=== PATIENT | male | born 1980 | race Caucasian/White ===

== ENCOUNTER 2020-07-04 05:19 | Emergency (ER) | payer OTHER ==
[~2020-07-04] VITALS: Ht 160 cm; Wt 88.6 kg
[2020-07-04 05:26] VITALS: Ht 160 cm; Wt 88.6 kg
[2020-07-04] MEDS ORDERED: ZESTRIL10 MG PO (05:27)
[2020-07-04] MEDS ORDERED: DILTIAZEM 24HR120 M3 PO (05:27)
[2020-07-04 05:57] LABS: BASOPHILS 0.8 % (0-2); HEMOGLOBIN 16.5 g/dL (13.5-17.5); IMMATURE GRANULOCYTES 0.3 % (0-5); LYMPHOCYTES 32.1 % (15-50); MCH 31.2 pg (26.0-34.0); MCHC 33.7 g/dL (31.0-37.0); MCV 92.6 fL (80.0-100.0); MEAN PLATELET VOLUME 10.6 fL (7.4-10.4); MONOCYTES 9.1 % (2-11); NEUTROPHILS 54.7 % (40-80); PLATELET COUNT 209 10x3/uL (130-400); RBC 5.29 10x6/uL (4.20-6.10); RDW 13.5 % (11.5-14.5); WBC 7.9 10x3/uL (4.8-10.8)
[2020-07-04 06:01] LABS: CALC OSMOLALITY 286 mosm/kg (275-300); CALCIUM 8.7 mg/dL (8.5-10.1); CARBON DIOXIDE 27.8 mmol/L (21.0-32.0); CHLORIDE - SERUM 106 mmol/L (98-107); CREATININE - SERUM 1.4 mg/dL (0.6-1.3); GLUCOSE 186 mg/dL (74-106); POTASSIUM - SERUM 3.7 mmol/L (3.5-5.1); SODIUM 141 mmol/L (136-145); UREA NITROGEN 16 mg/dL (7-18); eGFR NON AFRICAN AMERICAN 59 mL/min (90-120)
[2020-07-04 06:09] LABS: ALBUMIN 4.1 g/dL (3.4-5.0); ALKALINE PHOSPHATASE 93 U/L (30-120); ALT (SGPT) 40 U/L (10-68); AMYLASE - SERUM 36 U/L (25-115); BILIRUBIN - TOTAL 0.44 mg/dL (0.2-1.3); LIPASE 383 U/L (73-393); PROTEIN - SERUM 7.8 g/dL (6.4-8.2); TROPONIN-I < 0.017 ng/mL (0.000-0.060)
[2020-07-04 07:21] LABS: BACTERIA FEW /HPF (NONE SEEN); BILIRUBIN NEGATIVE (NEGATIVE); KETONE MODERATE mg/dL (NEGATIVE); NITRITE NEGATIVE (NEGATIVE); UROBILINOGEN NORMAL mg/dL (< 2); WHITE CELLS - URINE 0-5 /HPF (0-1)
[2020-07-04 07:22] LABS: EPITHELIAL CELLS RARE /hpf (0-5)
[2020-07-04] MEDS ORDERED: ZOFRAN ODT4 MG/UDTAB PO (08:30)
[2020-07-04] MEDS ORDERED: FLOMAX0.4 MG PO (08:30)
[2020-07-04] MEDS ORDERED: NORCO 7.5-3251 EACH GT (08:31)
[2020-07-04 08:41] VITALS: BP 133/74
== END 2020-07-04 08:50 | disposition home or self-care (01) ==
LOC: D.ER 05:19
PROVIDERS: Family Medicine
DX: R10.9 Unspecified abdominal pain (principal); N20.1 Calculus of ureter; I10 Essential (primary) hypertension